=== PATIENT | female | born 1960 | race Caucasian/White ===

== ENCOUNTER → 2018-05-29 | Day surgery (SDC) | payer OTHER | END | disposition home or self-care (01) | LOC: AMB-ENDOS 06:51 | DX: K62.5 Hemorrhage of anus and rectum (principal); K64.8 Other hemorrhoids; Z12.11 Encounter for screening for malignant neoplasm of colon ==

== ENCOUNTER 2022-02-01 06:14 | Day surgery (SDC) | payer OTHER ==
[~2022-02-01 06:14] MED LIST: ARMOUR THYROID60 M1 PO; GLIMEPIRIDE2 M1 PO; LOSARTAN POTASS50 MG PO; METFORMIN HCL500 M3 PO; TOPROL XL50 M1
== END 2022-02-01 11:50 | disposition home or self-care (01) ==
LOC: CIR.AMB 06:14
PROVIDERS: ATTEND Surgery Surgery of the Hand
DX: M65.841 Other synovitis and tenosynovitis, right hand (principal); I10 Essential (primary) hypertension; E11.9 Type 2 diabetes mellitus without complications; E03.9 Hypothyroidism, unspecified; Z79.84 Long term (current) use of oral hypoglycemic drugs; Z20.822 Contact with and (suspected) exposure to COVID-19

== ENCOUNTER 2024-02-20 06:19 | Day surgery (SDC) | payer OTHER ==
[2024-02-20] MEDS ORDERED: ONDANSETRON HCL 2 MG/ML VIAL IV ONE (09:00)
[2024-02-20] MEDS ORDERED: FLUMAZENIL 0.5 MG/5 ML ML IV STA (09:00)
[2024-02-20] MEDS ORDERED: MIDAZOLAM HCL 2 MG/2 ML VIAL IV ONE (09:00)
[2024-02-20] MEDS ORDERED: DIPHENHYDRAMINE HCL 50 MG/ML VIAL 1ML IV ONE (09:00)
[2024-02-20] MEDS ORDERED: fentaNYL CITRATE 50 MCG/ML AMPUL IV PUSH ONE (09:00)
== END 2024-02-20 10:35 | disposition home or self-care (01) ==
LOC: AMB-ENDOS 06:19
PROVIDERS: ATTEND Colon & Rectal Surgery
DX: D12.0 Benign neoplasm of cecum (principal); K63.5 Polyp of colon; K57.30 Diverticulosis of large intestine without perforation or abscess without bleeding